=== PATIENT | female | born 1980 | race Caucasian/White ===

== ENCOUNTER → 2016-10-12 | Outpatient (CLI) | payer OTHER ==
[2016-10-12 10:33] VITALS: BP 130/87
== END ==
LOC: MHUC 10:13
PROVIDERS: ATTEND Physician Assistant
DX: J01.00 Acute maxillary sinusitis, unspecified (principal)
CPT/HCPCS: 99213

== ENCOUNTER → 2017-01-22 | Outpatient (CLI) | payer OTHER ==
[~2017-01-22] MED LIST: AMOX1TAB12 PO
--- NOTE | 2017-01-22 10:44 | Diagnostic Imaging Report ---
INDICATION: OB ultrasound for survey. FINDINGS: There is single live intrauterine fetus. Fetus is currently vertex and active. heart beat 132 beats per minute. Placenta is posterior right and not low. Three-vessel umbilical cord is demonstrated. Amniotic fluid index is normal at 15 cm. Estimated weight of 268 g. anatomical survey is normal. biometric measurements are BPD 4.31, head circumference 16.18 cm, abdominal circumference 13.63 cm and femur length 2.89 cm. IMPRESSION: Single live intrauterine fetus showing average gestational age by ultrasound of 19 weeks and 1 day. This would give a sonographic EDC of 06/17/2017 which correlates well with clinical EDC of 06/18/2017. Dictated by: Dictated on workstation # [id number]
== END ==
LOC: RAD 09:10
PROVIDERS: ATTEND Family Medicine
DX: Z36 Encounter for antenatal screening of mother (principal)
CPT/HCPCS: 76805